=== PATIENT | female | born 1995 | race Two or more races ===

== ENCOUNTER 2021-08-18 12:45 | Inpatient (IN) | payer OTHER ==
[~2021-08-18] VITALS: Ht 154.9 cm; Wt 3.2 kg
[2021-08-31] MEDS ORDERED: PRENATAL TABLE1 EAC2 PO (14:30)
== END 2021-09-03 12:43 | disposition home or self-care (01) | DRG 788 ==
LOC: LDR 08-31 14:08 → SURG-SUITE 08-31 14:08 → LDR 09-06 12:45
PROVIDERS: ADMIT Obstetrics & Gynecology; ATTEND Obstetrics & Gynecology
PROC: 4A1HXCZ Monitoring of Products of Conception, Cardiac Rate, External Approach (ICD-10-PCS; 2021-08-31)
PROC: 10D00Z1 Extraction of Products of Conception, Low, Open Approach (ICD-10-PCS; principal; 2021-08-31 16:00)
DX: O76 Abnormality in fetal heart rate and rhythm complicating labor and delivery (principal); Z3A.39 39 weeks gestation of pregnancy; Z37.0 Single live birth; Z20.822 Contact with and (suspected) exposure to COVID-19